=== PATIENT | female | born 1975 | race Caucasian/White ===

== ENCOUNTER 2024-06-25 14:41 | Emergency (ER) | payer OTHER ==
[~2024-06-25] VITALS: Ht 175.3 cm; Wt 80.0 kg
[2024-06-25] MEDS: NS 1,000 ML IV ONE ×2 (15:24→16:36)
[2024-06-25 15:28] LABS: BASO # 0.1 10^3/uL (0.0-0.2); BASO % 0.6 % (0.0-1.0); EOS # 0.2 10^3/uL (0.0-0.5); EOS % 1.8 % (0.0-3.0); HEMATOCRIT 38.4 % (36.0-47.0); HEMOGLOBIN 12.9 g/dl (12.0-15.5); LYMPH % 17.4 % (24.0-44.0); MEAN CORPUSCULAR HEMOGLOBIN 31.2 pg (27.0-33.0); MEAN CORPUSCULAR HGB CONC 33.6 g/dl (32.0-36.5); MEAN CORPUSCULAR VOLUME 92.8 fl (80.0-96.0); MONO # 0.5 10^3/uL (0.0-0.8); MONO % 3.9 % (2.0-8.0); NEUTROPHILS # 8.9 10^3/uL (1.5-8.5); NEUTROPHILS % 75.9 % (36.0-66.0); PLATELET COUNT, AUTOMATED 306 10^3/uL (150-450); RED BLOOD COUNT 4.14 10^6/uL (4.00-5.40); WHITE BLOOD COUNT 11.7 10^3/uL (4.0-10.0)
[2024-06-25] MEDS ORDERED: VENL75CA47 PO (15:35)
[2024-06-25] MEDS ORDERED: ATIV1TAB10 PO (15:35)
[2024-06-25 15:46] LABS: D-DIMER QUANT 0.41 ug/mL (<0.5); PARTIAL THROMBOPLASTIN TIME 24.6 SECONDS (24.8-34.2); PROTHROMBIN TIME 12.9 SECONDS (12.5-14.5)
[2024-06-25 15:52] LABS: CK-MB VALUE MASS < 1.0 NG/ML (<3.6); ETHYL ALCOHOL (ETHANOL) < 0.003 % (0.000-0.010)
[2024-06-25 15:54] LABS: BLOOD UREA NITROGEN 14 MG/DL (9-23); CALCIUM LEVEL 8.8 MG/DL (8.5-10.1); CARBON DIOXIDE LEVEL 24 MMOL/L (20-31); CHLORIDE LEVEL 107 MMOL/L (98-107); CPK CREATINE PHOSPHOKINASE 72 U/L (34-145); GLOMERULAR FILTRATION RATE > 60.0 (>51); GLUCOSE, FASTING 178 MG/DL (60-100); MAGNESIUM LEVEL 1.8 MG/DL (1.8-2.4); MB/CK RELATIVE INDEX 1.38 (< OR =4); SODIUM LEVEL 139 MMOL/L (136-145)
[2024-06-25 15:56] LABS: FREE T4 0.96 NG/DL (0.89-1.76)
[2024-06-25 15:58] LABS: HCG, SERUM QUALITATIVE NEGATIVE (NEGATIVE)
[2024-06-25 17:08] LABS: CK-MB VALUE MASS < 1.0 NG/ML (<3.6)
[2024-06-25 17:09] LABS: CPK CREATINE PHOSPHOKINASE 66 U/L (34-145); MB/CK RELATIVE INDEX 1.51 (< OR =4)
[2024-06-25 19:30] VITALS: BP 152/71; TEMP 98.2; O2SAT 99
== END 2024-06-25 19:56 | disposition home or self-care (01) ==
LOC: EDBD 14:41 → M ED 14:41
DX: R55 Syncope and collapse (principal); E86.0 Dehydration; J45.909 Unspecified asthma, uncomplicated; Z88.2 Allergy status to sulfonamides; Z88.5 Allergy status to narcotic agent